=== PATIENT | female | born 1980 | race Caucasian/White ===

== ENCOUNTER 2022-04-20 17:38 | Emergency (ER) | payer MEDICAID ==
[~2022-04-20] VITALS: Ht 149.9 cm; Wt 135.2 kg
--- NOTE | 2022-04-20 18:10 | NUR ---
BIBS C/O "Had Covid 2wks ago Still feel weak/SOB and weird taste in mouth". AMBULATORY, PLACED ON BED, AAOX4, BREATHING EVEN AND UNLABORED. SEEN AND EXAMINED BY
--- NOTE | 2022-04-20 18:22 | NUR ---
BENEFITS COORDINATOR. AT BED SIDE
[2022-04-20 19:05] LABS: CALCIUM, SERUM 8.6 mg/dL (8.5-10.1); CREATININE 0.7 mg/dL (0.6-1.3); POTASSIUM 3.5 mmol/L (3.5-5.1)
[2022-04-20 19:58] LABS: BASOPHILS % (AUTO) 0.5 % (0.0-2.0); HEMATOCRIT 43 % (33-45); HEMOGLOBIN 14.6 g/dL (11.5-14.8); LYMPHOCYTES # (AUTO) 2.3 K/uL (0.8-4.8); LYMPHOCYTES % (AUTO) 28.8 % (20.0-44.0); MEAN CORPUSCULAR HGB CONC 34 g/dl (31.0-36.0); MEAN CORPUSCULAR VOLUME 97 fL (82-100); MONOCYTES # (AUTO) 0.7 K/uL (0.1-1.30); MONOCYTES % (AUTO) 9.3 % (2.0-12.0); NEUTROPHILS # (AUTO) 4.7 K/uL (1.8-8.9); NEUTROPHILS % (AUTO) 58.4 % (43.0-81.0); PLATELET COUNT (AUTO) 222 K/uL (150-450); RED BLOOD CELL COUNT(AUTO) 4.48 MIL/uL (4.0-5.2)
--- NOTE | 2022-04-20 20:31 | NUR ---
Patient discharged to home in stable condition. Written and verbal after care instructions given. Patient verbalizes understanding of instruction.
[2022-04-20 20:32] VITALS: BP 135/70
== END 2022-04-20 20:33 | disposition home or self-care (01) ==
LOC: ER 17:42
DX: U07.1 COVID-19 (principal); Z90.49 Acquired absence of other specified parts of digestive tract
CPT/HCPCS: 36415; 80048-TC; 85025-TC